=== PATIENT | female | born 1955 | race American Indian/Alaskan Native ===

== ENCOUNTER 2018-07-12 02:49 | Emergency (ER) | payer MEDICARE ==
[2018-07-12 04:01] LABS: Red Blood Count 4.44 M/mm3 (3.65-5.03)
[2018-07-12 04:02] LABS: Basophils # (Auto) 0.1 K/mm3 (0.0-0.1); Basophils % (Auto) 0.8 % (0.0-1.8); Eosinophils # (Auto) 0.1 K/mm3 (0.0-0.4); Eosinophils % (Auto) 1.9 % (0.0-4.3); Hematocrit 38.2 % (30.3-42.9); Hemoglobin 12.6 gm/dl (10.1-14.3); Lymphocytes # (Auto) 2.4 K/mm3 (1.2-5.4); Lymphocytes % (Auto) 36.7 % (13.4-35.0); Mean Corpuscular HGB Conc 33 % (30-34); Mean Corpuscular Volume 86 fl (79-97); Monocytes # (Auto) 0.6 K/mm3 (0.0-0.8); Monocytes % (Auto) 9.4 % (0.0-7.3); Platelet Count 216 K/mm3 (140-440); Red Cell Distribution Width 14.9 % (13.2-15.2)
--- NOTE | 2018-07-12 04:09 | XRay Report ---
PROCEDURE: XR CHEST ROUTINE 2V TECHNIQUE: PA and lateral views of the chest were obtained. HISTORY: GOLDY COMPARISONS: 06/06/2014 FINDINGS: The heart size and mediastinum appear normal. The lungs are not congested. There are no infiltrates o r effusions. The skeletal structures do not show acute changes. IMPRESSION: No acute cardiopulmonary process.. This document is electronically signed by Atul Law MD., July 12 2018 04:07:31 AM ET
[2018-07-12] MEDS ORDERED: ROBITUSSIN AC PO ONE (04:16)
[2018-07-12] MEDS ORDERED: SOLU-Medrol IV ONE (04:16)
[2018-07-12] MEDS ORDERED: NACL 0.9% 500 ML 500 ML IV ONE (04:16)
[2018-07-12] MEDS ORDERED: DUONEB *Not for PRN Use IH ONE (04:24)
[2018-07-12 04:31] LABS: Alanine Aminotransferase 12 units/L (7-56); BUN/Creatinine Ratio 20; Blood Urea Nitrogen 18 mg/dL (7-17); Calcium 9.8 mg/dL (8.4-10.2); Hemolysis Index 3
--- NOTE | 2018-07-12 05:54 | Emergency Department Report ---
HPI - General Chief Complaint: Dyspnea/Respdistress Time Seen by Provider: 07/12/18 04:09 - HPI HPI: 63-year-old female presents to the emergency department with the complaint of a 2 day history of some coughing, wheezing and shortness of breath. Patient says that she had a "cold" about one week ago but did have some improvement between now and then. She denies any chest pain, fever, nausea, vomiting, back pain or diaphoresis. She has a past medical history of multiple CVA, hypertension, asthma. She says that she's been using her Flonase and her rescue inhaler "more than you are supposed to." Her primary care physician is [facility]. No recent travel or sick contacts at home. ED Past Medical Hx - Past Medical History Previous Medical History?: Yes Hx Hypertension: Yes Hx CVA: Yes (09/24/2013) Hx Heart Attack/AMI: No Hx Congestive Heart Failure: No Hx Diabetes: No Hx Deep Vein Thrombosis: No Hx Pulmonary Embolism: No Hx Liver Disease: No Hx Renal Disease: No Hx Sickle Cell Disease: No Hx Arthritis: No Hx Seizures: No Hx Kidney Stones: No Hx Asthma: No Hx COPD: No Hx Tuberculosis: No Hx Dementia: No Hx HIV: No Additional medical history: neuropathy p cva - Surgical History Hx Coronary Stent: No Hx Open Heart Surgery: No Hx Pacemaker: No Hx Internal Defibrillator: No Hx Cholecystectomy: No Hx Appendectomy: No Hx Breast Surgery: Yes (LEFT BREAST) Additional Surgical History: PARTIAL HYSTERECTOMY - Social History Smoking Status: Never Smoker Substance Use Type: None - Medications Home Medications: Home Medications Medication Instructions Recorded Confirmed Last Taken Type Potassium Chloride [K-Tab ER] 10 meq PO DAILY 05/01/17 10/06/17 04/30/17 History Aspirin [Aspirin TAB] 325 mg PO QDAY #30 tablet 10/08/17 Unknown Rx Clopidogrel [Plavix] 75 mg PO DAILY #30 tablet 10/08/17 Unknown Rx Fenofibrate [Tricor] 145 mg PO QHS tablet 10/08/17 Unknown Rx Gabapentin [Neurontin] 300 mg PO TID capsule 10/08/17 Unknown Rx Losartan/Hydrochlorothiazide 1 each PO DAILY #30 tablet 10/08/17 Unknown Rx [Losartan-Hctz 100-25 mg Tab] Metoprolol [Lopressor TAB] 25 mg PO BID #60 tablet 10/08/17 Unknown Rx Pravastatin [Pravachol] 10 mg PO QHS #30 tablet 10/08/17 Unknown Rx amLODIPine [Norvasc] 5 mg PO HS #30 tablet 10/08/17 Unknown Rx ALBUTEROL Inhaler (OR & NICU) 2 puff IH QID PRN #1 inhalation 07/12/18 Unknown Rx [ProAir HFA Inhaler] guaiFENesin [Mucinex] 600 mg PO BID PRN #10 tab.er.12h 07/12/18 Unknown Rx guaiFENesin/CODEINE [Robitussin AC] 5 ml PO Q6H PRN #100 ml 07/12/18 Unknown Rx predniSONE [Deltasone] 20 mg PO BID #6 tab 07/12/18 Unknown Rx ED Review of Systems ROS: Stated complaint: GOLDY/COUGH Other details as noted in HPI Comment: All other systems reviewed and negative Constitutional: denies: chills, fever Eyes: denies: eye pain, vision change ENT: denies: ear pain, throat pain Respiratory: cough, shortness of breath, wheezing Cardiovascular: denies: chest pain, palpitations, edema Gastrointestinal: denies: abdominal pain, vomiting Genitourinary: denies: dysuria, frequency Musculoskeletal: denies: back pain, arthralgia Skin: denies: rash, lesions Neurological: denies: headache, weakness Physical Exam - Physical Exam Vital Signs: Vital Signs 07/12/18 07/12/18 07/12/18 02:53 03:00 04:15 Temperature 97.8 F 97.8 F Pulse Rate 54 L 54 L 54 L Respiratory 18 18 18 Rate Blood Pressure 152/79 152/79 Blood Pressure 162/69 [Left] O2 Sat by Pulse 100 100 99 Oximetry 07/12/18 04:24 Temperature Pulse Rate Respiratory 20 Rate Blood Pressure Blood Pressure [Left] O2 Sat by Pulse 99 Oximetry Physical Exam: GENERAL: The patient is well-developed well-nourished. HEENT: Normocephalic. Atraumatic. Patient has moist mucous membranes. EYES: Extraocular motions are intact. Pupils are equal and reactive to light bilaterally. NECK: Supple. Trachea is midline. CHEST/LUNGS: Mild expiratory wheezing. A productive cough heard during examination. No tachypnea or accessory muscle use. There is no respiratory distress noted. HEART/CARDIOVASCULAR: Regular. There is no tachycardia. There is no obvious murmur. ABDOMEN: Abdomen is soft, nontender. Patient has normal bowel sounds. There is no abdominal distention. SKIN: Skin is warm and dry. NEURO: The patient is awake, alert, and oriented. The patient is cooperative. The patient has normal speech. MUSCULOSKELETAL: There is no tenderness or deformity. There is no evidence of acute injury. ED Course Vital Signs 07/12/18 07/12/18 07/12/18 02:53 03:00 04:15 Temperature 97.8 F 97.8 F Pulse Rate 54 L 54 L 54 L Respiratory 18 18 18 Rate Blood Pressure 152/79 152/79 Blood Pressure 162/69 [Left] O2 Sat by Pulse 100 100 99 Oximetry 07/12/18 04:24 Temperature Pulse Rate Respiratory 20 Rate Blood Pressure Blood Pressure [Left] O2 Sat by Pulse 99 Oximetry ED Medical Decision Making - Lab Data Result diagrams: 07/12/18 03:31 07/12/18 03:31 - EKG Data -: EKG Interpreted by Me EKG shows normal: sinus rhythm, axis (left axis deviation), intervals (prolonged [place] interval), QRS complexes (LVH, Q waves to the septal leads), ST-T waves Rate: bradycardia (50 bpm) - EKG Data When compared to previous EKG there are: no significant change Interpretation: unchanged when compared t (10/06/17) - Radiology Data Radiology results: image reviewed interpreted by me: Chest x-ray does not show any pneumothorax, pleural effusion, pneumonia or obvious focal consolidation. - Medical Decision Making Patient presents with a two-day history of a mixed dry and productive cough, wheezing and some shortness of breath. She denies any chest pain. Chest x-ray did not show any pleural effusions, pneumonia, pneumothorax, focal consolidation, or any other acute process. Labs have been unremarkable including a CBC, BMP, negative troponin, low BNP and a negative d-dimer. She was given steroids and a breathing treatment and Robitussin-AC for cough. She was reevaluated multiple times for multiple hours and is feeling improved. She appears safe for discharge home at this time. Vital signs stable throughout her ED course. She will be discharged home with steroids, a refill of her inhaler, and Robitussin-AC for cough. She is instructed to follow up with her PCP later today and to return to the emergency Department with any worsening of her symptoms or any acute distress. - Differential Diagnosis asthma, bronchitis, pneumonia, PE Critical Care Time: No Critical care attestation.: If time is entered above; I have spent that time in minutes in the direct care of this critically ill patient, excluding procedure time. ED Disposition Clinical Impression: Bronchitis, Hypertension Disposition: DC TO HOME OR SELFCARE Is pt being admited?: No Condition: Stable Instructions: Acute Bronchitis (ED), Hypertension (ED) Additional Instructions: Please follow-up with your primary care physician in the next 1-2 days. Return to the emergency Department with any worsening of her symptoms or any acute distress. You have been prescribed a medication that can be sedating. Therefore, this medication cannot be taken prior to driving, working, being responsible for children, and cannot be mixed with alcohol of any quantity. Prescriptions: predniSONE [Deltasone] 20 mg PO BID #6 tab guaiFENesin [Mucinex] 600 mg PO BID PRN #10 tab.er.12h PRN Reason: Congestion ALBUTEROL Inhaler (OR & NICU) [ProAir HFA Inhaler] 2 puff IH QID PRN #1 inhalation PRN Reason: Shortness Of Breath guaiFENesin/CODEINE [Robitussin AC] 5 ml PO Q6H PRN #100 ml PRN Reason: Cough Referrals: CHUY BLANDON [Other] - [facility] Time of Disposition: 05:56
[2018-07-13 18:13] VITALS: BP 162/69
== END 2018-07-12 06:35 | disposition home or self-care (01) ==
LOC: ED 02:49
DX: J40 Bronchitis, not specified as acute or chronic (principal); I10 Essential (primary) hypertension; Z90.710 Acquired absence of both cervix and uterus; G62.9 Polyneuropathy, unspecified; Z86.2 Personal history of diseases of the blood and blood-forming organs and certain disorders involving the immune mechanism; Z79.899 Other long term (current) drug therapy; Z91.09 Other allergy status, other than to drugs and biological substances; Z88.1 Allergy status to other antibiotic agents; Z91.041 Radiographic dye allergy status
CPT/HCPCS: 36415; 71046; 80053; 83880; 84484; 85025; 85379; 93005; 93010; 96374; 99284; J2930; J7040

== ENCOUNTER 2019-08-04 21:12 | Emergency (ER) | payer MEDICARE ==
[2019-08-04] MEDS ORDERED: ACETAMINOPHEN 500 MG TAB PO ONE (22:11)
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
[2019-08-05 02:00] VITALS: BP 160/80
== END 2019-08-04 23:40 | disposition home or self-care (01) ==
LOC: ED 21:12
DX: S29.012A Strain of muscle and tendon of back wall of thorax, initial encounter (principal); M62.838 Other muscle spasm; M62.830 Muscle spasm of back; I10 Essential (primary) hypertension; Z90.710 Acquired absence of both cervix and uterus; Z79.899 Other long term (current) drug therapy; Z91.041 Radiographic dye allergy status; Z91.018 Allergy to other foods; X58.XXXA Exposure to other specified factors, initial encounter; Y93.89 Activity, other specified; Y92.89 Other specified places as the place of occurrence of the external cause; Y99.8 Other external cause status
CPT/HCPCS: 70450; 72125; 72128; 72131

== ENCOUNTER 2020-03-25 15:13 | Emergency (ER) | payer MEDICARE, OTHER ==
[2020-03-25 16:43] VITALS: BP 172/66
--- NOTE | 2020-03-25 17:26 | Emergency Department Report ---
ED ENT HPI - General Chief complaint: Headache Stated complaint: HEADACHE/WHEEZING Source: patient Mode of arrival: Ambulatory Limitations: No Limitations - History of Present Illness Initial comments: 64-year-old -[place] female presents to the emergency room for complaints of room spinning, headache, nasal congestion and rhinorrhea. Denies any any shortness of breath chest pain sore throat. She does admit to nausea the first day. This is been going on for 3 days. States that she has been taking [id number] Sudafed cold. She has taken nothing for her symptoms today. Onset/Timin -: days(s) Severity: moderate Severity scale (0 -10): 5 Consistency: constant Improves with: none Worsens with: none Associated Symptoms: cough, rhinorrhea, other (Feels her ears are clogged up). denies: fever, gum swelling, toothache, tinnitus, hearing loss - Related Data Home Medications Medication Instructions Recorded Confirmed Last Taken Potassium Chloride [K-Tab ER] 10 meq PO DAILY 05/01/17 10/06/17 04/30/17 Previous Rx's Medication Instructions Recorded Last Taken Type Aspirin 325 mg PO QDAY #30 tablet 10/08/17 Unknown Rx Clopidogrel [Plavix] 75 mg PO DAILY #30 tablet 10/08/17 Unknown Rx Fenofibrate [Tricor] 145 mg PO QHS tablet 10/08/17 Unknown Rx Gabapentin 300 mg PO TID capsule 10/08/17 Unknown Rx Losartan/Hydrochlorothiazide 1 each PO DAILY #30 tablet 10/08/17 Unknown Rx [Losartan-Hctz 100-25 mg Tab] Metoprolol [Lopressor TAB] 25 mg PO BID #60 tablet 10/08/17 Unknown Rx Pravastatin [Pravachol] 10 mg PO QHS #30 tablet 10/08/17 Unknown Rx amLODIPine 5 mg PO HS #30 tablet 10/08/17 Unknown Rx Albuterol Mdi (or & Nicu Only) 2 puff IH QID PRN #1 inhalation 07/12/18 Unknown Rx [ProAir HFA Inhaler] guaiFENesin [Mucinex] 600 mg PO BID PRN #10 tab.er.12h 07/12/18 Unknown Rx guaiFENesin/CODEINE [Robitussin AC] 5 ml PO Q6H PRN #100 ml 07/12/18 Unknown Rx predniSONE [Deltasone] 20 mg PO BID #6 tab 07/12/18 Unknown Rx Cetirizine HCl [Zyrtec 10mg tab] 10 mg PO QDAY #30 tablet 03/25/20 Unknown Rx Fluticasone [Flonase] 1 spray NS QDAY #1 bottle 03/25/20 Unknown Rx Sulfamethoxazole/Trimethoprim 1 each PO BID 10 Days #20 tablet 03/25/20 Unknown Rx [Bactrim DS TAB] Allergies Allergy/AdvReac Type Severity Reaction Status Date / Time bisacodyl Allergy Shortness Verified 03/30/14 23:25 [From Dulcolax (bisacodyl)] of Breath chocolate flavor Allergy Rash Verified 03/30/14 23:25 Iodinated Contrast Media Allergy Rash Verified 03/30/14 23:25 [Iodinated Contrast Media - IV Dye] metronidazole [From Flagyl] Allergy Rash Verified 03/30/14 23:25 tetracycline [Tetracycline] Allergy Rash Verified 03/30/14 23:25 ED Dental HPI - General Chief complaint: Headache Stated complaint: HEADACHE/WHEEZING Source: patient Mode of arrival: Ambulatory Limitations: No Limitations - Related Data Home Medications Medication Instructions Recorded Confirmed Last Taken Potassium Chloride [K-Tab ER] 10 meq PO DAILY 05/01/17 10/06/17 04/30/17 Previous Rx's Medication Instructions Recorded Last Taken Type Aspirin 325 mg PO QDAY #30 tablet 10/08/17 Unknown Rx Clopidogrel [Plavix] 75 mg PO DAILY #30 tablet 10/08/17 Unknown Rx Fenofibrate [Tricor] 145 mg PO QHS tablet 10/08/17 Unknown Rx Gabapentin 300 mg PO TID capsule 10/08/17 Unknown Rx Losartan/Hydrochlorothiazide 1 each PO DAILY #30 tablet 10/08/17 Unknown Rx [Losartan-Hctz 100-25 mg Tab] Metoprolol [Lopressor TAB] 25 mg PO BID #60 tablet 10/08/17 Unknown Rx Pravastatin [Pravachol] 10 mg PO QHS #30 tablet 10/08/17 Unknown Rx amLODIPine 5 mg PO HS #30 tablet 10/08/17 Unknown Rx Albuterol Mdi (or & Nicu Only) 2 puff IH QID PRN #1 inhalation 07/12/18 Unknown Rx [ProAir HFA Inhaler] guaiFENesin [Mucinex] 600 mg PO BID PRN #10 tab.er.12h 07/12/18 Unknown Rx guaiFENesin/CODEINE [Robitussin AC] 5 ml PO Q6H PRN #100 ml 07/12/18 Unknown Rx predniSONE [Deltasone] 20 mg PO BID #6 tab 07/12/18 Unknown Rx Cetirizine HCl [Zyrtec 10mg tab] 10 mg PO QDAY #30 tablet 03/25/20 Unknown Rx Fluticasone [Flonase] 1 spray NS QDAY #1 bottle 03/25/20 Unknown Rx Sulfamethoxazole/Trimethoprim 1 each PO BID 10 Days #20 tablet 03/25/20 Unknown Rx [Bactrim DS TAB] Allergies Allergy/AdvReac Type Severity Reaction Status Date / Time bisacodyl Allergy Shortness Verified 03/30/14 23:25 [From Dulcolax (bisacodyl)] of Breath chocolate flavor Allergy Rash Verified 03/30/14 23:25 Iodinated Contrast Media Allergy Rash Verified 03/30/14 23:25 [Iodinated Contrast Media - IV Dye] metronidazole [From Flagyl] Allergy Rash Verified 03/30/14 23:25 tetracycline [Tetracycline] Allergy Rash Verified 03/30/14 23:25 ED Review of Systems ROS: Stated complaint: HEADACHE/WHEEZING Other details as noted in HPI Comment: All other systems reviewed and negative ED Past Medical Hx - Past Medical History Hx Hypertension: Yes Hx CVA: Yes (09/24/2013) Hx Heart Attack/AMI: No Hx Congestive Heart Failure: No Hx Diabetes: No Hx Deep Vein Thrombosis: No Hx Pulmonary Embolism: No Hx Liver Disease: No Hx Renal Disease: No Hx Sickle Cell Disease: No Hx Arthritis: No Hx Seizures: No Hx Kidney Stones: No Hx Asthma: No Hx COPD: No Hx Tuberculosis: No Hx Dementia: No Hx HIV: No Additional medical history: neuropathy p cva - Surgical History Hx Coronary Stent: No Hx Open Heart Surgery: No Hx Pacemaker: No Hx Internal Defibrillator: No Hx Cholecystectomy: No Hx Appendectomy: No Hx Breast Surgery: Yes (LEFT BREAST) Additional Surgical History: PARTIAL HYSTERECTOMY - Social History Smoking Status: Never Smoker Substance Use Type: None - Medications Home Medications: Home Medications Medication Instructions Recorded Confirmed Last Taken Type Potassium Chloride [K-Tab ER] 10 meq PO DAILY 05/01/17 10/06/17 04/30/17 History Aspirin 325 mg PO QDAY #30 tablet 10/08/17 Unknown Rx Clopidogrel [Plavix] 75 mg PO DAILY #30 tablet 10/08/17 Unknown Rx Fenofibrate [Tricor] 145 mg PO QHS tablet 10/08/17 Unknown Rx Gabapentin 300 mg PO TID capsule 10/08/17 Unknown Rx Losartan/Hydrochlorothiazide 1 each PO DAILY #30 tablet 10/08/17 Unknown Rx [Losartan-Hctz 100-25 mg Tab] Metoprolol [Lopressor TAB] 25 mg PO BID #60 tablet 10/08/17 Unknown Rx Pravastatin [Pravachol] 10 mg PO QHS #30 tablet 10/08/17 Unknown Rx amLODIPine 5 mg PO HS #30 tablet 10/08/17 Unknown Rx Albuterol Mdi (or & Nicu Only) 2 puff IH QID PRN #1 inhalation 07/12/18 Unknown Rx [ProAir HFA Inhaler] guaiFENesin [Mucinex] 600 mg PO BID PRN #10 tab.er.12h 07/12/18 Unknown Rx guaiFENesin/CODEINE [Robitussin AC] 5 ml PO Q6H PRN #100 ml 07/12/18 Unknown Rx predniSONE [Deltasone] 20 mg PO BID #6 tab 07/12/18 Unknown Rx Cetirizine HCl [Zyrtec 10mg tab] 10 mg PO QDAY #30 tablet 03/25/20 Unknown Rx Fluticasone [Flonase] 1 spray NS QDAY #1 bottle 03/25/20 Unknown Rx Sulfamethoxazole/Trimethoprim 1 each PO BID 10 Days #20 tablet 03/25/20 Unknown Rx [Bactrim DS TAB] ED Physical Exam - General Limitations: No Limitations General appearance: alert, in no apparent distress - Head Head exam: Present: atraumatic, normocephalic - Eye Eye exam: Present: normal appearance - ENT ENT exam: Present: normal exam, mucous membranes moist - Neck Neck exam: Present: normal inspection, full ROM. Absent: tenderness - Respiratory Respiratory exam: Present: normal lung sounds bilaterally. Absent: respiratory distress, wheezes, chest wall tenderness, accessory muscle use - Cardiovascular Cardiovascular Exam: Present: regular rate, normal rhythm. Absent: systolic murmur, diastolic murmur, rubs, gallop - GI/Abdominal GI/Abdominal exam: Present: soft, normal bowel sounds - Extremities Exam Extremities exam: Present: normal inspection - Back Exam Back exam: Present: normal inspection - Neurological Exam Neurological exam: Present: alert, oriented X3 - Psychiatric Psychiatric exam: Present: normal affect, normal mood - Skin Skin exam: Present: warm, dry, intact, normal color. Absent: rash ED Course Vital Signs 03/25/20 16:41 Temperature 97.7 F Pulse Rate 65 Respiratory 22 Rate Blood Pressure 172/66 O2 Sat by Pulse 99 Oximetry ED Medical Decision Making - Medical Decision Making 64-year-old -[place] female presents to the emergency room for complaints of room spinning, headache, nasal congestion and rhinorrhea. Denies any any shortness of breath chest pain sore throat. She does admit to nausea the first day. This is been going on for 3 days. States that she has been taking [id number] Sudafed cold. She has taken nothing for her symptoms today. Patient be discharged home for sinusitis,. Zyrtec's, Flonase Bactrim take ibuprofen or Tylenol. Stay away from [facility] Critical care attestation.: If time is entered above; I have spent that time in minutes in the direct care of this critically ill patient, excluding procedure time. ED Disposition Clinical Impression: Sinusitis chronic, frontal Disposition: [id number] TO HOME OR SELFCARE Is pt being admited?: No Does the pt Need Aspirin: No Condition: Stable Instructions: Sinusitis, Adult, [id number] Additional Instructions: Complete antibiotics as prescribed take medication as prescribed. Ibuprofen or Tylenol for pain management. Prescriptions: Sulfamethoxazole/Trimethoprim [Bactrim DS TAB] 1 each PO BID 10 Days #20 tablet Fluticasone [Flonase] 1 spray NS QDAY #1 bottle Cetirizine HCl [Zyrtec 10mg tab] 10 mg PO QDAY #30 tablet Referrals: [facility] [Provider Group] - 3-5 Days
== END 2020-03-26 02:19 | disposition home or self-care (01) ==
LOC: ED 15:13
DX: J32.1 Chronic frontal sinusitis (principal); I10 Essential (primary) hypertension; Z86.73 Personal history of transient ischemic attack (TIA), and cerebral infarction without residual deficits; Z98.890 Other specified postprocedural states; Z79.899 Other long term (current) drug therapy; Z88.8 Allergy status to other drugs, medicaments and biological substances
CPT/HCPCS: 99281